=== PATIENT | female | born 1950 | race Caucasian/White ===

== ENCOUNTER 2019-04-09 15:09 | Inpatient (IN) | payer MEDICARE ==
[2019-04-09] MEDS ORDERED: ACETAMINOPHEN TAB 325 MG TAB PO PRN (18:21)
[2019-04-09] MEDS: SODIUM CHLORIDE 0.9% 1,000 ML IV SCH (18:46)
[2019-04-09] MEDS: METOPROLOL TARTRATE 25 MG TAB PO SCH (20:28)
[2019-04-09] MEDS: APIXABAN 5 MG TAB PO SCH (20:28)
[2019-04-10] MEDS ORDERED: LEVOTHYROXINE 75 MCG TAB PO SCH (06:30)
[2019-04-10 06:38] VITALS: RESP 16
[2019-04-10 06:55] LABS: HCT 38.8 % (34.0-46.0); MCHC 33.6 g/dL (31.0-37.0); MCV 89.2 fL (80.0-100.0); Mean Platelet Volume 9.5; Platelet Count 144 k/uL (150-450); RBC 4.35 m/uL (3.80-5.40); RDW 12.6 % (11.5-15.5); WBC 5.5 k/uL (3.8-10.6)
[2019-04-10 07:02] LABS: ALT 17 U/L (4-34); AST 26 U/L (14-36); African American GFR (CKD) >90 (>60 ml/min/1.73 sqM); Albumin 3.9 g/dL (3.5-5.0); Alkaline Phosphatase 40 U/L (38-126); Anion Gap 4 mmol/L; Blood Urea Nitrogen 12 mg/dL (7-17); Carbon Dioxide 30 mmol/L (22-30); Chloride 103 mmol/L (98-107); Glucose 86 mg/dL (74-99); Non-African American GFR(CKD) >90 (>60 ml/min/1.73 sqM); Potassium 4.1 mmol/L (3.5-5.1); Sodium 137 mmol/L (137-145); Total Bilirubin 0.8 mg/dL (0.2-1.3); Total Protein 6.5 g/dL (6.3-8.2)
[2019-04-10] MEDS: METOPROLOL TARTRATE 25 MG TAB PO SCH (07:59)
[2019-04-10] MEDS: APIXABAN 5 MG TAB PO SCH (07:59)
[2019-04-10] MEDS: SODIUM CHLORIDE 0.9% 1,000 ML IV SCH (08:15)
[2019-04-10] MEDS ORDERED: CALCIUM CARBONATE 500 MG CHEWABLE PO SCH (09:00)
--- NOTE | 2019-04-10 10:30 | P.HPIM ---
History of Present Illness patient is a pleasant 70-year-old female came in with compensative palpitations denied any shortness of breath denied any fever chills nausea vomiting abdominal burning dysuria diarrhea patient doesn't have any significant alert light abnormalities patient heart rate is controlled patient converted to sinus rhythm with the fevers of Cardizem. Patient was started on metoprolol which which patient is becoming sinus bradycardic will cut down the metoprolol to 12.5 twice a day and patient will be discharged today after evaluated by cardiology. Patient had a TSH within which is within normal limits patient does take levothyroxine at home. Patient was diagnosed with atrial fibrillation in 2012 at that time patient was dehydrated and did have some and provided abnormalities at this time I don't see any precipitating factor for today. Review of Systems REVIEW OF SYSTEMS: CONSTITUTIONAL: No fever, no malaise, no fatigue. HEENT: No recent visual problems or hearing problems. Denied any sore throat. CARDIOVASCULAR: No chest pain, orthopnea, PND, no syncope. PULMONARY: No shortness of breath, no cough, no hemoptysis. GASTROINTESTINAL: No diarrhea, no nausea, no vomiting, no abdominal pain. NEUROLOGICAL: No headaches, no weakness, no numbness. HEMATOLOGICAL: Denies any bleeding or petechiae. GENITOURINARY: Denies any burning micturition, frequency, or urgency. MUSCULOSKELETAL/RHEUMATOLOGICAL: Denies any joint pain, swelling, or any muscle pain. ENDOCRINE: Denies any polyuria or polydipsia. The rest of the 14-point review of systems is negative. Past Medical History Past Medical History: Atrial Fibrillation, GERD/Reflux, Hyperlipidemia, Osteoarthritis (OA), Thyroid Disorder Additional Past Medical History / Comment(s): hypothyroid History of Any Multi-Drug Resistant Organisms: None Reported Past Surgical History: Breast Surgery, Section, Tonsillectomy Additional Past Surgical History / Comment(s): left breast biopsy. radiation treatment to throat post tonsillectomy at age 5. c sectionx 2 Past Anesthesia/Blood Transfusion Reactions: No Reported Reaction Smoking Status: Never smoker - Past Family History Father Family Medical History: Cancer, Coronary Artery Disease (CAD), Myocardial Infarction ([place]) Additional Family Medical History / Comment(s): lymphoma Mother Family Medical History: Cancer, Coronary Artery Disease (CAD), Diabetes Mellitus, Myocardial Infarction ([place]) Additional Family Medical History / Comment(s): lymphoma Sister(s) Family Medical History: AFIB, Thyroid Disorder Medications and Allergies Home Medications Medication Instructions Recorded Confirmed Type Acetaminophen [Tylenol] 325 - 650 mg PO Q4H PRN 04/09/19 04/09/19 History Alendronate Sodium [Fosamax] 70 mg PO TU 04/09/19 04/09/19 History Apixaban [Eliquis] 5 mg PO BID@0900,2100 04/09/19 04/09/19 History Calcium Carbonate [Calcium] 600 mg PO DAILY 04/09/19 04/09/19 History Cetirizine HCl 10 mg PO DAILY PRN 04/09/19 04/09/19 History Fluticasone Nasal [place] [Flonase 1 spray EA NOSTRIL DAILY PRN 04/09/19 04/09/19 History Nasal [place]] Levothyroxine Sodium [Synthroid] 75 mcg PO DAILY 04/09/19 04/09/19 History Multivitamins, Thera [Multivitamin 1 tab PO DAILY 04/09/19 04/09/19 History (formulary)] Metoprolol Tartrate 12.5 mg PO BID #60 tab 04/10/19 Rx Allergies Allergy/AdvReac Type Severity Reaction Status Date / Time Penicillins Allergy Rash/Hives Verified 04/09/19 17:27 Sulfa (Sulfonamide Allergy Rash/Hives Verified 04/09/19 17:27 Antibiotics) Physical Exam Vitals: Vital Signs Temp Pulse Resp BP Pulse Ox 04/10/19 08:00 98.6 F 72 16 105/56 97 04/10/19 04:00 60 16 98/56 98 04/10/19 00:00 98.7 F 59 L 17 99/56 98 04/09/19 20:00 97.3 F L 75 16 115/62 98 04/09/19 17:38 70 18 99/68 99 Intake and Output 04/09/19 04/10/19 04/10/19 22:59 06:59 14:59 Intake Total 120 Balance 120 Intake: Oral 120 Other: Voiding Method Toilet Toilet # Voids 1 1 Weight 63.3 kg 64 kg PHYSICAL EXAMINATION: GENERAL: The patient is alert and oriented x3, not in any acute distress. Well developed, well nourished. HEENT: Pupils are round and equally reacting to light. EOMI. No scleral icterus. No conjunctival pallor. Normocephalic, atraumatic. No pharyngeal erythema. No thyromegaly. CARDIOVASCULAR: S1 and S2 present. No murmurs, rubs, or gallops. PULMONARY: Chest is clear to auscultation, no wheezing or crackles. ABDOMEN: Soft, nontender, nondistended, normoactive bowel sounds. No palpable organomegaly. MUSCULOSKELETAL: No joint swelling or deformity. EXTREMITIES: No cyanosis, clubbing, or pedal edema. NEUROLOGICAL: Gross neurological examination did not reveal any focal deficits. SKIN: No rashes. Results CBC & Chem 7: 04/10/19 06:04 04/10/19 06:04 Labs: Abnormal Lab Results - Last 24 Hours (Table) 04/10/19 Range/Units 06:04 Plt Count 144 L (150-450) k/uL Thrombosis Risk Factor Assmnt - Choose All That Apply Any of the Below Risk Factors Present?: Yes Each Factor Represents 1 point: Obesity (BMI >25) Other Risk Factors: Yes Each Risk Factor Represents 2 Points: Age 61-74 years Thrombosis Risk Factor Assessment Total Risk Factor Score: 3 Thrombosis Risk Factor Assessment Level: Moderate Risk Assessment and Plan Plan: -atrial fibrillation with rapid ventricular rate: Patient is currently sinus rhythm rate controlled patient has proximal A. fib patient is highly sensitive to rate control medications we will lower discharged on a very low-dose of metoprolol -Hypotelorism TSH is within normal limits will continue have elevated thyroxine -hyperlipidemia -osteo- arthritis -gastro-esophageal reflux disease
--- NOTE | 2019-04-10 10:31 | P.DS ---
Providers Date of admission: 04/09/19 16:45 Attending physician: Nadeen Adorno MD Consults: 04/09/19 18:22 Consult Physician Routine Consulting Provider: Nghia Woo Consult Reason/Comments: afib rvr Do you want consulting provider notified?: Yes Primary care physician: Bessie L [facility] Course: as mentioned in HPI Plan - Discharge Summary Discharge Rx Participant: No New Discharge Prescriptions: New Metoprolol Tartrate 12.5 mg PO BID #60 tab No Action Fluticasone Nasal [place] [Flonase Nasal [place]] 1 spray EA NOSTRIL DAILY PRN PRN Reason: Allergy Symptoms Cetirizine HCl 10 mg PO DAILY PRN PRN Reason: Allergy Symptoms Acetaminophen [Tylenol] 325 - 650 mg PO Q4H PRN PRN Reason: Pain Multivitamins, Thera [Multivitamin (formulary)] 1 tab PO DAILY Calcium Carbonate [Calcium] 600 mg PO DAILY Alendronate Sodium [Fosamax] 70 mg PO TU Apixaban [Eliquis] 5 mg PO BID@0900,2099 Levothyroxine Sodium [Synthroid] 75 mcg PO DAILY Discharge Medication List Acetaminophen [Tylenol] 325 - 650 mg PO Q4H PRN 04/09/19 [History] Alendronate Sodium [Fosamax] 70 mg PO TU 04/09/19 [History] Apixaban [Eliquis] 5 mg PO BID@0900,2100 04/09/19 [History] Calcium Carbonate [Calcium] 600 mg PO DAILY 04/09/19 [History] Cetirizine HCl 10 mg PO DAILY PRN 04/09/19 [History] Fluticasone Nasal [place] [Flonase Nasal [place]] 1 spray EA NOSTRIL DAILY PRN 04/09/19 [History] Levothyroxine Sodium [Synthroid] 75 mcg PO DAILY 04/09/19 [History] Multivitamins, Thera [Multivitamin (formulary)] 1 tab PO DAILY 04/09/19 [History] Metoprolol Tartrate 12.5 mg PO BID #60 tab 04/10/19 [Rx] Discharge Disposition: HOME SELF-CARE
[2019-04-10] MEDS ORDERED: MULTIVITAMINS, THERA 1 EACH TAB PO SCH (12:00)
--- NOTE | 2019-04-10 12:04 | P.CRDCN ---
History of Present Illness Consult date: 04/10/19 Chief complaint: Palpitation History of present illness: This is a very pleasant 68-year-old female patient with thyroid disorder as well as paroxysmal atrial fibrillation maintaining on oral anticoagulation was transferred from the [facility] for further cardiac evaluation. The patient was in her usual state of health until yesterday when she was at home when suddenly she started experiencing irregular heartbeat associated with p alpitation but no dizziness, or syncope. No chest pain or chest discomfort. She knew that was in atrial fibrillation when she checked her pulse and that was irregular. She presented initially to the emergency room with [facility] where she was found to be in atrial fibrillation and subsequently she was started on Cardizem drip and transferred here. She is converted to normal sinus mechanism has been maintaining normal sinus mechanism. She is asymptomatic at this point and denies any chest pain, shortness of breath, dizziness, heart racing, or syncope. She was at home receiving 12.5 mg by mouth twice a day of metoprolol and the dose was increased to 25 mg by mouth twice a day. Her blood work otherwise is unremarkable. The patient would like to go home. She is on oral anticoagulation. Past Medical History Past Medical History: Atrial Fibrillation, GERD/Reflux, Hyperlipidemia, Osteoarthritis (OA), Thyroid Disorder Additional Past Medical History / Comment(s): hypothyroid History of Any Multi-Drug Resistant Organisms: None Reported Past Surgical History: Breast Surgery, Section, Tonsillectomy Additional Past Surgical History / Comment(s): left breast biopsy. radiation treatment to throat post tonsillectomy at age 5. c sectionx 2 Past Anesthesia/Blood Transfusion Reactions: No Reported Reaction Smoking Status: Never smoker - Past Family History Father Family Medical History: Cancer, Coronary Artery Disease (CAD), Myocardial Infarction ([place]) Additional Family Medical History / Comment(s): lymphoma Mother Family Medical History: Cancer, Coronary Artery Disease (CAD), Diabetes Mellitus, Myocardial Infarction ([place]) Additional Family Medical History / Comment(s): lymphoma Sister(s) Family Medical History: AFIB, Thyroid Disorder Medications and Allergies Home Medications Medication Instructions Recorded Confirmed Type Acetaminophen [Tylenol] 325 - 650 mg PO Q4H PRN 04/09/19 04/09/19 History Alendronate Sodium [Fosamax] 70 mg PO TU 04/09/19 04/09/19 History Apixaban [Eliquis] 5 mg PO BID@0900,2100 04/09/19 04/09/19 History Calcium Carbonate [Calcium] 600 mg PO DAILY 04/09/19 04/09/19 History Cetirizine HCl 10 mg PO DAILY PRN 04/09/19 04/09/19 History Fluticasone Nasal [place] [Flonase 1 spray EA NOSTRIL DAILY PRN 04/09/19 04/09/19 History Nasal [place]] Levothyroxine Sodium [Synthroid] 75 mcg PO DAILY 04/09/19 04/09/19 History Multivitamins, Thera [Multivitamin 1 tab PO DAILY 04/09/19 04/09/19 History (formulary)] Metoprolol Tartrate 12.5 mg PO BID #60 tab 04/10/19 Rx Allergies Allergy/AdvReac Type Severity Reaction Status Date / Time Penicillins Allergy Rash/Hives Verified 04/09/19 17:27 Sulfa (Sulfonamide Allergy Rash/Hives Verified 04/09/19 17:27 Antibiotics) Physical Exam Vitals: Vital Signs Temp Pulse Resp BP Pulse Ox 04/10/19 08:00 98.6 F 72 16 105/56 97 04/10/19 04:00 60 16 98/56 98 04/10/19 00:00 98.7 F 59 L 17 99/56 98 04/09/19 20:00 97.3 F L 75 16 115/62 98 04/09/19 17:38 70 18 99/68 99 Intake and Output 04/09/19 04/10/19 04/10/19 22:59 06:59 14:59 Intake Total 120 Balance 120 Intake: Oral 120 Other: Voiding Method Toilet Toilet # Voids 1 1 Weight 63.3 kg 64 kg - Constitutional General appearance: no acute distress - Respiratory Respiratory: bilateral: CTA - Cardiovascular Rhythm: regular Heart sounds: normal: S1, S2 Results 04/10/19 06:04 04/10/19 06:04 Cardiac Enzymes 04/09/19 04/10/19 04/10/19 Range/Units 18:54 01:09 06:04 AST 26 (14-36) U/L Troponin I 0.012 <0.012 (0.000-0.034) ng/mL 04/10/19 Range/Units 06:04 AST (14-36) U/L Troponin I <0.012 (0.000-0.034) ng/mL CBC 04/10/19 Range/Units 06:04 WBC 5.5 (3.8-10.6) k/uL RBC 4.35 (3.80-5.40) m/uL Hgb 13.0 (11.4-16.0) gm/dL Hct 38.8 (34.0-46.0) % Plt Count 144 L (150-450) k/uL Comprehensive Metabolic Panel 04/10/19 Range/Units 06:04 Sodium 137 (137-145) mmol/L Potassium 4.1 (3.5-5.1) mmol/L Chloride 103 (98-107) mmol/L Carbon Dioxide 30 (22-30) mmol/L BUN 12 (7-17) mg/dL Creatinine 0.67 (0.52-1.04) mg/dL Glucose 86 (74-99) mg/dL Calcium 9.0 (8.4-10.2) mg/dL AST 26 (14-36) U/L ALT 17 (4-34) U/L Alkaline Phosphatase 40 (38-126) U/L Total Protein 6.5 (6.3-8.2) g/dL Albumin 3.9 (3.5-5.0) g/dL Current Medications Generic Name Dose Route Start Last Admin Trade Name Freq PRN Reason Stop Dose Admin Acetaminophen 650 mg 04/09/19 18:21 Tylenol Tab PO Q6HR PRN Pain Apixaban 5 mg 04/09/19 21:00 04/10/19 07:59 Eliquis PO 5 mg BID@0900,2100 [facility] Administration Calcium Carbonate/Glycine 500 mg 04/10/19 09:00 04/10/19 07:58 Tums PO Not Given DAILY [facility] Sodium Chloride 1,000 mls @ 75 mls/hr 04/09/19 18:30 04/10/19 08:15 Saline 0.9% IV Not Given .[id number] [facility] Levothyroxine Sodium 75 mcg 04/10/19 06:30 04/10/19 06:37 Synthroid PO 75 mcg DAILY@0630 [facility] Administration Metoprolol Tartrate 25 mg 04/09/19 21:00 04/10/19 07:59 Lopressor PO 12.5 mg BID [facility] Administration Multivitamins 1 each 04/10/19 12:00 Theragran PO DAILY@1200 [facility] Intake and Output 04/09/19 04/10/19 04/10/19 22:59 06:59 14:59 Intake Total 120 Balance 120 Intake: Oral 120 Other: Voiding Method Toilet Toilet # Voids 1 1 Weight 63.3 kg 64 kg 04/10/19 06:04 04/10/19 06:04 Assessment and Plan Assessment: Assessment #1 atrial fibrillation with RVR. The patient converted to normal sinus mechanism #2 known paroxysmal atrial fibrillation #3 thyroid disorder Plan #1 agree about increasing the dose of metoprolol to 25 mg by mouth twice a day #2 the patient can be discharged home Thank you for allowing us participate in her care
[2019-04-10 12:49] VITALS: BP 98/59; PULSE 60; TEMP 98.2
== END 2019-04-10 13:39 | disposition home or self-care (01) | DRG 310 ==
LOC: 3SCARD 16:45
PROVIDERS: ADMIT Internal Medicine; ATTEND Internal Medicine
DX: I48.0 Paroxysmal atrial fibrillation (principal); E03.9 Hypothyroidism, unspecified; E78.5 Hyperlipidemia, unspecified; K21.9 Gastro-esophageal reflux disease without esophagitis; M19.90 Unspecified osteoarthritis, unspecified site; Z79.01 Long term (current) use of anticoagulants; Z92.3 Personal history of irradiation; Z79.83 Long term (current) use of bisphosphonates; Z79.890 Hormone replacement therapy; Z80.7 Family history of other malignant neoplasms of lymphoid, hematopoietic and related tissues; Z82.49 Family history of ischemic heart disease and other diseases of the circulatory system; Z83.3 Family history of diabetes mellitus; Z79.899 Other long term (current) drug therapy; Z88.0 Allergy status to penicillin; Z88.2 Allergy status to sulfonamides
CPT/HCPCS: 80053; 84443; 84484; 85027

== ENCOUNTER → 2019-07-22 | Outpatient (CLI) | payer MEDICARE ==
[2019-07-22 14:58] VITALS: BP 117/68; PULSE 73; RESP 18; TEMP 98.3
--- NOTE | 2019-07-22 15:30 | P.GSHP ---
History of Present Illness H&P Date: 07/22/19 Chief Complaint: Abnormal mammogram Cata is a 61-year-old white female seen in consultation for Bessie Mckenzie who underwent a bilateral mammogram on . This was in follow- up for a bi-lateral mammogram approximately 6 months prior with some calcifications noted. On the most recent mammogram she was noted to have some coarse single Microcalcification central upper breast bilaterally. There was chronic nodularity in the left axilla. The area in the right breast was felt to be suspicious enough to warrant intervention of stereotactic core biopsy. She does not feel any masses or lumps in her breast. No complaints of nipple discharge. No complaints of breast pain. No trauma or infection in her breast. The left breast biopsy at 36 which was not cancer. Caffeine: 4 cups/day smoking: none, daughter lives with her an smokes outside chocolate: occasional Family History: mother: lung cancer, lymphoma father: lymphoma Hormonal History: menarche: 13 , breast fed: yes, age at first : 27 menopause: 50 BCP: 6 years hormones: none Surgical History: 1. left breast biopsy 2. 2 C-sections 3. D&C 4. dental surgery Medical History: 1. atrial fibrillation 2. hypothyroid Social History: smoke: 2nd hand smoke alcohol: none drugs: none - Constitutional Comment: hot flashes Constitutional: Denies chills, Denies fever - EENT Eyes: denies blurred vision, denies pain Ears: deny: decreased hearing, tinnitus Ears, nose, mouth and throat: Denies headache, Denies sore throat - Breasts Breasts: bilateral: as per HPI - Cardiovascular Comment: atrial fibrillation - Respiratory Respiratory: Denies cough, Denies 7 - Gastrointestinal Gastrointestinal: Denies abdominal pain, Denies diarrhea, Denies nausea, Denies vomiting - Genitourinary (Female) Genitourinary: Denies dysuria, Denies hematuria - Menstruation Menstruation: Reports postmenopausal - Musculoskeletal Comment: arthritis - Integumentary Integumentary: Denies pruritus, Denies rash - Neurological Neurological: Denies numbness, Denies weakness - Psychiatric Psychiatric: Denies anxiety, Denies depression - Endocrine Endocrine: Denies fatigue, Denies weight change - Hematologic/Lymphatic Comment: eloquis - Allergic/Immunologic Allergic/Immunologic: Reports as per HPI Past Medical History Past Medical History: Atrial Fibrillation, GERD/Reflux, Hyperlipidemia, Osteoarthritis (OA), Thyroid Disorder Additional Past Medical History / Comment(s): hypothyroid History of Any Multi-Drug Resistant Organisms: None Reported Past Surgical History: Breast Surgery, Section, Tonsillectomy Additional Past Surgical History / Comment(s): left breast biopsy. radiation treatment to throat post tonsillectomy at age 5. c sectionx 2 Past Anesthesia/Blood Transfusion Reactions: No Reported Reaction Past Psychological History: No Psychological Hx Reported Smoking Status: Never smoker Past Alcohol Use History: None Reported Past Drug Use History: None Reported - Past Family History Father Family Medical History: Cancer, Coronary Artery Disease (CAD), Myocardial Infarction ([place]) Additional Family Medical History / Comment(s): lymphoma Mother Family Medical History: Cancer, Coronary Artery Disease (CAD), Diabetes Mellit us, Myocardial Infarction ([place]) Additional Family Medical History / Comment(s): lymphoma Sister(s) Family Medical History: AFIB, Thyroid Disorder Medications and Allergies Home Medications Medication Instructions Recorded Confirmed Type Acetaminophen [Tylenol] 325 - 650 mg PO Q4H PRN 04/09/19 07/22/19 History Alendronate Sodium [Fosamax] 70 mg PO TU 04/09/19 07/22/19 History Apixaban [Eliquis] 5 mg PO BID@0900,2100 04/09/19 07/22/19 History Calcium Carbonate [Calcium] 600 mg PO DAILY 04/09/19 07/22/19 History Cetirizine HCl 10 mg PO DAILY PRN 04/09/19 07/22/19 History Fluticasone Nasal [place] [Flonase 1 spray EA NOSTRIL DAILY PRN 04/09/19 07/22/19 History Nasal [place]] Levothyroxine Sodium [Synthroid] 75 mcg PO DAILY 04/09/19 07/22/19 History Multivitamins, Thera [Multivitamin 1 tab PO DAILY 04/09/19 07/22/19 History (formulary)] Metoprolol Tartrate [Lopressor] 12.5 mg PO BID 07/22/19 07/22/19 History Allergies Allergy/AdvReac Type Severity Reaction Status Date / Time Penicillins Allergy Rash/Hives Verified 07/22/19 14:58 Sulfa (Sulfonamide Allergy Rash/Hives Verified 07/22/19 14:58 Antibiotics) Surgical - Exam Vital Signs Temp Pulse Resp BP Pulse Ox 98.3 F 73 18 117/68 98 07/22/19 14:55 07/22/19 14:55 07/22/19 14:55 07/22/19 14:55 07/22/19 14:55 BMI 26.6 - General well developed, well nourished, no distress - Eyes normal ocular movement, no icteric - ENT no hearing loss, no congestion - Neck no masses, trachea midline - Respiratory normal expansion, normal respiratory effort, clear to auscultation - Cardiovascular Heart Sounds: normal: S1, S2 - Abdomen Abdomen: soft, non tender, no guarding, no rigid, no rebound - Integumentary normal turgor - Neurologic no disoriented, no combative - Musculoskeletal normal gait, normal posture - Psychiatric oriented to time, oriented to person, oriented to place, speech is normal, memory intact breast exam: BRA 38C inspection: well healed scar left areolar area, ptosis grade 2 Palpation: Bypass: Multiple positional exam no dominant masses or nodules of concern, fibrocystic changes Right axilla: No adenopathy of concern Left breast: Multiple positional exam fibrocystic changes no dominant masses or nodules of concern Left axilla: No adenopathy of concern Results Mammogram results reviewed Assessment and Plan Assessment: Impression: 1. Mammographic abnormality right breast 2. Fibrocystic breast changes 3. Atrial fibrillation on all across Plan: 1. Stereotactic core biopsy right breast lesion 2. Stop anticoagulation as per medical doctor Alternatives including watchful waiting and open biopsy in the operating room discussed but not recommended. Risks and benefits including bleeding and infection reaction to the anesthetic discussed. The possibility that the area will not be adequately sampled was also discussed if this were discordant it could result in an open biopsy be necessary. Patient understands risks and benefits and wishes to proceed. CC: Bessie Penn encounter 45 minutes, > 50% of time in planning and counselling
== END | disposition home or self-care (01) ==
LOC: WWCWWP 14:43
PROVIDERS: ATTEND Surgery
DX: Z53.9 Procedure and treatment not carried out, unspecified reason (principal)

== ENCOUNTER → 2019-08-11 | Day surgery (SDC) | payer MEDICARE ==
[2019-08-11 07:29] VITALS: RESP 16
--- NOTE | 2019-08-11 08:28 | P.PCN ---
Date of Procedure: 08/11/19 Preoperative Diagnosis: Abnormal right breast mammogram Postoperative Diagnosis: Same Procedure(s) Performed: Stereotactic core biopsy right breast Anesthesia: local Surgeon: Fay Spaulding Pathology: other (Breast tissue) Condition: stable Disposition: same day Indications for Procedure: Suspicious calcifications central upper breast right Operative Findings: Microcalcifications noted in biopsy specimen Description of Procedure: The patient is a 69-year-old white female who underwent a mammogram which revealed calcifications of concern in the upper central portion of the right breast. She was recommended to undergo stereotactic core biopsy. Risk and benefits of the procedure were discussed with the patient and she agreed to proceed. Alternatives such as watchful waiting or open biopsy were not recommended. The patient was taken to the stereotactic core biopsy room. The patient was positioned prone on the low rad table. A lateral to medial approach was utilized. A bonded structures repairer film was obtained which revealed the microcalcifications of concern. Stereo pair was obtained. The lesion was targeted. The breast was prepped using Betadine. 20 mL of 1% lidocaine was used to anesthetize the area of concern. A 19-gauge vacuum-assisted core rotating biopsy needle was driven to the correct coordinates. The needle was fired. Post fire films revealed the needle to be in the correct location. 12 core biopsy specimens were obtained. Radiograph of the specimens revealed the microcalcifications of concern had been sampled. A secure aston Top-pocket marker was placed. The patient tolerated the procedure in stable condition. The specimen was sent to pathology. The patient will follow- up with Dr. Perdomo next week.
[2019-08-11 08:38] VITALS: BP 123/64; PULSE 68; TEMP 98.6
--- NOTE | 2019-08-11 13:44 | MM ---
EXAMINATION TYPE: MG stereo VAD BX RT DATE OF EXAM: 08/11/2019 COMPARISON: NONE CLINICAL HISTORY: Abnormal mammogram TECHNIQUE: Stereotactic guided core biopsy of right breast. FINDINGS: Targeting was provided by radiology. The procedure was performed by surgery. Postprocedure mammogram: Surgical core marker is in the expected region of the calcifications. The calcifications appear resected. Specimen: Mammographic specimen demonstrates multiple calcifications. IMPRESSION: 1. Successful stereotactic core biopsy right breast calcifications. Recommendations: 1. Recommendations are pending pathology results. Pathology Results: Benign RIGHT BREAST, SITE NOT OTHERWISE SPECIFIED (CORE BIOPSY): Non-proliferative fibrocystic changes with ductal microcalcifications. Recommendation Follow up mammogram of the right breast in 6 months. NURY
== END ==
LOC: RADMAMWWP 07:08
PROVIDERS: ATTEND Surgery
DX: N60.11 Diffuse cystic mastopathy of right breast (principal)
CPT/HCPCS: 88305; 19081; A4648; J2001

== ENCOUNTER → 2019-08-18 | Outpatient (CLI) | payer MEDICARE ==
[2019-08-18 10:45] VITALS: BP 109/68; PULSE 61; RESP 16; TEMP 98.9
--- NOTE | 2019-08-18 11:16 | P.PN ---
Subjective Progress Note Date: 08/18/19 Principal diagnosis: fibrocystic changes Patient is a 69-year-old white female status post a tactic core biopsy of the right breast and [id number]. Pathology revealed nonproliferative fibrocystic changes with ductal microcalcifications. In the immediate post-procedure. She developed some erythema of the breast however this is resolved. Maybe related to the location of some tape. She has some mild ecchymosis but otherwise is doing well without any complaints. Her last bilateral mammogram was 07-14-2019 and this led to right breast stereotactic core biopsy. No lesions to were biopsy were identified in the left breast. Objective - Vital Signs Vital signs: Vital Signs Temp 98.9 F 08/18/19 10:40 Pulse 61 08/18/19 10:40 Resp 16 08/18/19 10:40 BP 109/68 08/18/19 10:40 Pulse Ox 99 08/18/19 10:40 Intake & Output 08/17/19 08/18/19 08/18/19 18:59 06:59 18:59 Weight 64.864 kg - Exam BMI 25.7 - Constitutional General appearance: Present: average body habitus - EENT Eyes: Present: EOMI ENT: Present: hearing grossly normal - Neck Neck: Present: normal ROM - Respiratory Respiratory: bilateral: CTA - Cardiovascular Rhythm: regular Heart sounds: normal: S1, S2 - Integumentary Integumentary Comment(s): Mild ecchymosis right breast at biopsy site no evidence of infection Integumentary: Present: normal turgor Assessment and Plan Assessment: Impression/Plan: 1. Status post right breast stereotactic core biopsy on 08-11-19; pathology benign repeat right breast mammogram in 6 months 2. Bilateral mammogram June 2020 3. Follow-up here after right breast mammogram in 6 months 4. Call if she has any questions or concerns CC: Bessie Alonso encounter: 15 minutes, > 50% of time in planning and counsellin Time with Patient: Less than 30
== END | disposition home or self-care (01) ==
LOC: WWCWWP 10:32
PROVIDERS: ATTEND Surgery
DX: Z53.9 Procedure and treatment not carried out, unspecified reason (principal)

== ENCOUNTER 2020-01-26 01:46 | Observation (INO) | payer MEDICARE ==
[2020-01-26] MEDS ORDERED: SODIUM CHLORIDE 0.9% 1,000 ML IV STA (02:03)
[2020-01-26] MEDS ORDERED: DILTIAZEM 5 MG/ML 5 ML VIAL IVP STA ×2 (02:03→02:49)
--- NOTE | 2020-01-26 02:10 | ED ---
Arrhythmia/Palpitations HPI - General Chief Complaint: Arrhythmia/Palpitations Stated Complaint: A-Fib Time Seen by Provider: 01/26/20 01:52 Source: patient, family, RN notes reviewed, old records reviewed Mode of arrival: ambulatory Limitations: no limitations - History of Present Illness Initial Comments: This is a 61-year-old female DF for evaluation patient Dese for evaluation of abnormal heart rate. History of atrial fibrillation states her heart was elevated today. She did take an extra dose or medication but does not seem to help. Otherwise no complaints no chest pain. No recent change in medications has been taking medications as prescribed. No recent nausea vomiting or diarrhea. No fevers no recent significant white female weight loss MD Complaint: rapid heart beat, "heart racing", palpitations, atrial f ibrillation -: hour(s) Context: occurred during rest Arrhythmia History: atrial fibrillation, SVT Associated Symptoms: denies other symptoms Treatments Prior to Arrival: beta-yulisa - Related Data Home Medications Medication Instructions Recorded Confirmed Acetaminophen [Tylenol] 325 - 650 mg PO Q4H PRN 04/09/19 01/26/20 Alendronate Sodium [Fosamax] 70 mg PO TU 04/09/19 01/26/20 Apixaban [Eliquis] 5 mg PO BID@0900,2100 04/09/19 01/26/20 Calcium Carbonate [Calcium] 600 mg PO DAILY 04/09/19 01/26/20 Fluticasone Nasal [place] [Flonase 1 spray EA NOSTRIL DAILY PRN 04/09/19 01/26/20 Nasal [place]] Levothyroxine Sodium [Synthroid] 75 mcg PO DAILY 04/09/19 01/26/20 Multivitamins, Thera [Multivitamin 1 tab PO AC-LUNCH 04/09/19 01/26/20 (formulary)] L.acidoph,Paracasei, B.lactis 1 cap PO DAILY 01/26/20 01/26/20 [Probiotic] Previous Rx's Medication Instructions Recorded Metoprolol Tartrate [Lopressor] 25 mg PO BID #0 01/26/20 Allergies Allergy/AdvReac Type Severity Reaction Status Date / Time diphtheria, pertussis, Allergy Swelling Verified 01/26/20 06:43 tetanus vacc Penicillins Allergy Rash/Hives Verified 01/26/20 06:43 Sulfa (Sulfonamide Allergy Rash/Hives Verified 01/26/20 06:43 Antibiotics) Review of Systems ROS Statement: Those systems with pertinent positive or pertinent negative responses have been documented in the HPI. ROS Other: All systems not noted in ROS Statement are negative. Past Medical History Past Medical History: Atrial Fibrillation, GERD/Reflux, Hyperlipidemia, Osteoarthritis (OA), Thyroid Disorder Additional Past Medical History / Comment(s): hypothyroid History of Any Multi-Drug Resistant Organisms: None Reported Past Surgical History: Breast Surgery, Section, Tonsillectomy Additional Past Surgical History / Comment(s): left breast biopsy; radiation treatment to throat post tonsillectomy at age 5; c sectionx 2 Past Anesthesia/Blood Transfusion Reactions: No Reported Reaction Past Psychological History: No Psychological Hx Reported Smoking Status: Never smoker Past Alcohol Use History: None Reported Past Drug Use History: None Reported - Past Family History Father Family Medical History: Cancer, Coronary Artery Disease (CAD), Myocardial Infarction ([place]) Additional Family Medical History / Comment(s): lymphoma Mother Family Medical History: Cancer, Coronary Artery Disease (CAD), Diabetes Mellitus, Myocardial Infarction ([place]) Additional Family Medical History / Comment(s): lymphoma Sister(s) Family Medical History: AFIB, Thyroid Disorder General Exam Limitations: no limitations General appearance: alert, in no apparent distress, anxious Head exam: Present: atraumatic, normocephalic, normal inspection Eye exam: Present: normal appearance, PERRL, EOMI. Absent: scleral icterus, conjunctival injection, periorbital swelling ENT exam: Present: normal exam, mucous membranes moist Neck exam: Present: normal inspection. Absent: tenderness, meningismus, lymphadenopathy Respiratory exam: Present: normal lung sounds bilaterally. Absent: respiratory distress, wheezes, rales, rhonchi, stridor Cardiovascular Exam: Present: tachycardia, irregular rhythm, normal heart sounds. Absent: systolic murmur, diastolic murmur, rubs, gallop, clicks GI/Abdominal exam: Present: soft, normal bowel sounds. Absent: distended, tenderness, guarding, rebound, rigid Extremities exam: Present: normal inspection, full ROM, normal capillary refill. Absent: tenderness, pedal edema, joint swelling, calf tenderness Back exam: Present: normal inspection Neurological exam: Present: alert, oriented X3, CN II-XII intact Psychiatric exam: Present: normal affect, normal mood Skin exam: Present: warm, dry, intact, normal color. Absent: rash Course Vital Signs 01/26/20 01/26/20 01/26/20 01:49 01:59 02:04 Temperature 98.8 F Pulse Rate 86 147 H Pulse Rate [ 148 H [employer] ] Respiratory 18 16 Rate Blood Pressure 144/91 100/86 O2 Sat by Pulse 98 99 Oximetry 01/26/20 01/26/20 01/26/20 02:15 02:25 02:30 Temperature Pulse Rate 151 H 93 105 H Pulse Rate [ [employer] ] Respiratory 16 16 16 Rate Blood Pressure 120/81 100/64 105/77 O2 Sat by Pulse 98 100 99 Oximetry 01/26/20 01/26/20 01/26/20 02:40 02:55 03:15 Temperature Pulse Rate 103 H 122 H 98 Pulse Rate [ [employer] ] Respiratory 16 16 16 Rate Blood Pressure 122/69 96/82 97/75 O2 Sat by Pulse 97 100 98 Oximetry 01/26/20 01/26/20 01/26/20 03:45 04:00 04:30 Temperature Pulse Rate 141 H 137 H 106 H Pulse Rate [ [employer] ] Respiratory 16 16 16 Rate Blood Pressure 109/56 99/85 106/74 O2 Sat by Pulse 97 96 97 Oximetry 01/26/20 04:50 Temperature 97.9 F Pulse Rate 116 H Pulse Rate [ [employer] ] Respiratory 16 Rate Blood Pressure 113/69 O2 Sat by Pulse 97 Oximetry - Reevaluation(s) Reevaluation #1: Medical record is reviewed Unable control patient's heart rate here in the emergency department, decision is made to admit for prolonged rate control Patient remains without complaint other than fast heart rate, no chest pain Patient informed of results and questions have been answered EKG Findings - EKG Comments: EKG Findings:: EKG shows A. fib with RVR 148 QRS 76 QTc 464 Medical Decision Making - Medical Decision Making 61 female with uncontrolled atrial fibrillation with RVR. Patient will be admitted for continued rate control - Lab Data Result diagrams: 01/26/20 02:08 01/26/20 02:08 Lab Results 01/26/20 01/26/20 01/26/20 Range/Units 02:08 02:08 02:08 WBC 9.2 (3.8-10.6) k/uL RBC 4.71 (3.80-5.40) m/uL Hgb 13.5 (11.4-16.0) gm/dL Hct 42.6 (34.0-46.0) % MCV 90.6 (80.0-100.0) fL MCH 28.7 (25.0-35.0) pg MCHC 31.7 (31.0-37.0) g/dL RDW 12.6 (11.5-15.5) % Plt Count 155 (150-450) k/uL MPV 9.0 Neutrophils % 69 % Lymphocytes % 21 % Monocytes % 7 % Eosinophils % 1 % Basophils % 1 % Neutrophils # 6.3 (1.3-7.7) k/uL Lymphocytes # 1.9 (1.0-4.8) k/uL Monocytes # 0.6 (0-1.0) k/uL Eosinophils # 0.1 (0-0.7) k/uL Basophils # 0.1 (0-0.2) k/uL PT 10.5 (9.0-12.0) sec INR 1.0 (<1.2) APTT 26.8 (22.0-30.0) sec Sodium 136 L (137-145) mmol/L Potassium 3.9 (3.5-5.1) mmol/L Chloride 101 (98-107) mmol/L Carbon Dioxide 28 (22-30) mmol/L Anion Gap 7 mmol/L BUN 12 (7-17) mg/dL Creatinine 0.67 (0.52-1.04) mg/dL Est GFR (CKD-EPI)AfAm >90 (>60 ml/min/1.73 sqM) Est GFR (CKD-EPI)NonAf >90 (>60 ml/min/1.73 sqM) Glucose 113 H (74-99) mg/dL Calcium 9.2 (8.4-10.2) mg/dL Phosphorus 4.3 (2.5-4.5) mg/dL Magnesium 1.9 (1.6-2.3) mg/dL Total Bilirubin 0.4 (0.2-1.3) mg/dL AST 28 (14-36) U/L ALT 19 (4-34) U/L Alkaline Phosphatase 51 (38-126) U/L Creatine Kinase 100 (30-135) U/L Troponin I (0.000-0.034) ng/mL NT-Pro-B Natriuret Pep pg/mL Total Protein 7.1 (6.3-8.2) g/dL Albumin 4.2 (3.5-5.0) g/dL TSH (0.465-4.680) mIU/L 01/26/20 01/26/20 01/26/20 Range/Units 02:08 02:08 02:08 WBC (3.8-10.6) k/uL RBC (3.80-5.40) m/uL Hgb (11.4-16.0) gm/dL Hct (34.0-46.0) % MCV (80.0-100.0) fL MCH (25.0-35.0) pg MCHC (31.0-37.0) g/dL RDW (11.5-15.5) % Plt Count (150-450) k/uL MPV Neutrophils % % Lymphocytes % % Monocytes % % Eosinophils % % Basophils % % Neutrophils # (1.3-7.7) k/uL Lymphocytes # (1.0-4.8) k/uL Monocytes # (0-1.0) k/uL Eosinophils # (0-0.7) k/uL Basophils # (0-0.2) k/uL PT (9.0-12.0) sec INR (<1.2) APTT (22.0-30.0) sec Sodium (137-145) mmol/L Potassium (3.5-5.1) mmol/L Chloride (98-107) mmol/L Carbon Dioxide (22-30) mmol/L Anion Gap mmol/L BUN (7-17) mg/dL Creatinine (0.52-1.04) mg/dL Est GFR (CKD-EPI)AfAm (>60 ml/min/1.73 sqM) Est GFR (CKD-EPI)NonAf (>60 ml/min/1.73 sqM) Glucose (74-99) mg/dL Calcium (8.4-10.2) mg/dL Phosphorus (2.5-4.5) mg/dL Magnesium (1.6-2.3) mg/dL Total Bilirubin (0.2-1.3) mg/dL AST (14-36) U/L ALT (4-34) U/L Alkaline Phosphatase (38-126) U/L Creatine Kinase (30-135) U/L Troponin I <0.012 (0.000-0.034) ng/mL NT-Pro-B Natriuret Pep 142 pg/mL Total Protein (6.3-8.2) g/dL Albumin (3.5-5.0) g/dL TSH 7.180 H (0.465-4.680) mIU/L Critical Care Time Critical Care Time: Yes Total Critical Care Time: 31 Disposition Clinical Impression: Atrial fibrillation, Tachycardia, Palpitations, Atrial fibrillation with RVR Disposition[facility] Condition: Stable Is patient prescribed a controlled substance at d/c from ED?: No
[2020-01-26 02:27] LABS: Basophils # (A) 0.1 k/uL (0-0.2); Basophils % (A) 1 %; Eosinophils # (A) 0.1 k/uL (0-0.7); Eosinophils % (A) 1 %; HCT 42.6 % (34.0-46.0); HGB 13.5 gm/dL (11.4-16.0); Lymphocytes # (A) 1.9 k/uL (1.0-4.8); Lymphocytes % (A) 21 %; MCH 28.7 pg (25.0-35.0); MCHC 31.7 g/dL (31.0-37.0); MCV 90.6 fL (80.0-100.0); Monocytes # (A) 0.6 k/uL (0-1.0); Monocytes % (A) 7 %; Neutrophils # (A) 6.3 k/uL (1.3-7.7); Neutrophils % (A) 69 %; Platelet Count 155 k/uL (150-450); RBC 4.71 m/uL (3.80-5.40); RDW 12.6 % (11.5-15.5); WBC 9.2 k/uL (3.8-10.6)
[2020-01-26 02:32] LABS: Partial Thromboplastin Time 26.8 sec (22.0-30.0); Prothrombin Time 10.5 sec (9.0-12.0)
[2020-01-26 02:39] LABS: ALT 19 U/L (4-34); AST 28 U/L (14-36); African American GFR (CKD) >90 (>60 ml/min/1.73 sqM); Albumin 4.2 g/dL (3.5-5.0); Alkaline Phosphatase 51 U/L (38-126); Anion Gap 7 mmol/L; Blood Urea Nitrogen 12 mg/dL (7-17); Calcium 9.2 mg/dL (8.4-10.2); Carbon Dioxide 28 mmol/L (22-30); Chloride 101 mmol/L (98-107); Creatine Kinase 100 U/L (30-135); Glucose 113 mg/dL (74-99); Magnesium 1.9 mg/dL (1.6-2.3); Non-African American GFR(CKD) >90 (>60 ml/min/1.73 sqM); Phosphorus 4.3 mg/dL (2.5-4.5); Potassium 3.9 mmol/L (3.5-5.1); Sodium 136 mmol/L (137-145); Total Bilirubin 0.4 mg/dL (0.2-1.3); Total Protein 7.1 g/dL (6.3-8.2)
[2020-01-26] MEDS ORDERED: METOPROLOL TARTRATE 5 MG/5 ML VIAL IVP STA (02:49)
[2020-01-26] MEDS ORDERED: SODIUM CHLORIDE 0.9% 500 ML 500 ML IV ONE (03:00)
[2020-01-26] MEDS ORDERED: DILTIAZEM DRIP BOLUS FROM BAG 1 MG SOLN IV ONE (04:03)
[2020-01-26] MEDS ORDERED: NITROGLYCERIN SL TABS 0.4 MG TAB SUBLINGUAL PRN (04:03)
[2020-01-26] MEDS ORDERED: DILTIAZEM 125 MG in SODIUM CHLORIDE 0.9% 100 ML IV SCH (04:15)
[2020-01-26 08:40] VITALS: PULSE 72; RESP 18; TEMP 98.3
[2020-01-26] MEDS ORDERED: METOPROLOL TARTRATE 50 MG TAB PO SCH (09:00)
[2020-01-26 10:03] VITALS: BP 94/57
--- NOTE | 2020-01-26 10:27 | P.CRDCN ---
History of Present Illness History of present illness: HISTORY OF PRESENTING ILLNESS This is a pleasant 69-year-old female past medical history significant for hypothyroidism, paroxysmal atrial fibrillation who presents secondary to an episode of atrial fibrillation. She follows in the office with Dr. Fontenot. Patient admits she was initially diagnosed with atrial fibrillation in 2012 and has been doing fairly well since that time. She admits to usually only having 1 episode every 1-2 years however has had 2 episodes this year. She had one back in April with spontaneous conversion and was discharged home on her metoprolol. She has been tolerating Eliquis well and denies any hematochezia or melena. She admits she was resting when she started noticing her heart fluttering last night. She denied any chest pain, shortness breath and really only felt the palpitations. Denied any lightheadedness. She tried to wait a few hours howev er this persisted and therefore she came to the emergency department. She had heart rates in the 120s to 130s and was placed on a Cardizem drip at 5. She did spontaneously convert at approximately 8 AM. She feels back to normal. DIAGNOSTICS EKG reveals atrial fibrillation, normal axis, rate 148, mild ST depressions in the lateral leads. Laboratory reviewed, blood cell 9.2, hemoglobin 13.5, platelets 155, creatinine 0.67, troponin negative 3, proBNP 142. Current cardiac medications include aspirin 325 mg daily, metoprolol 50 mg twice a day, she was not restarted on her home Eliquis 5mg bid by admitting doctor. REVIEW OF SYSTEMS At the time of my exam: CONSTITUTIONAL: Denies fever or chills. CARDIOVASCULAR: Denies chest pain, shortness of breath, orthopnea, PND, + palpitations. RESPIRATORY: Denies cough. GASTROINTESTINAL: Denies abdominal pain, diarrhea, constipation, nausea or vom iting. MUSCULOSKELETAL: Denies myalgias. NEUROLOGIC: Denies numbness, tingling or weakness. ENDOCRINE: Denies fatigue, weight change, polydipsia or polyurina. GENITOURINARY: Denies burning, hematuria or urgency with micturation. HEMATOLOGIC: Denies history of anemia or bleeding. PHYSICAL EXAMINATION Blood pressure 94/57 heart rate 72 afebrile and maintaining oxygen saturation on room air. CONSTITUTIONAL: No apparent distress. HEENT: Head is normocephalic. Pupils are equal, round. Sclerae anicteric. Mucous membranes of the mouth are moist. No JVD. No carotid bruit. CHEST EXAMINATION: Lungs are clear to auscultation. No chest wall tenderness is noted on palpation or with deep breathing. HEART EXAMINATION: Regular rate and rhythm. S1, S2 heard. No murmurs, gallops or rub. ABDOMEN: Soft, nontender. Positive bowel sounds. EXTREMITIES: 2+ peripheral pulses, no lower extremity edema and no calf tenderness. NEUROLOGIC EXAMINATION: Patient is awake, alert and oriented x3. ASSESSMENT 1. Paroxysmal atrial fibrillation, converted to normal sinus rhythm 2. Hypothyroidism PLAN Patient spontaneously converted to normal sinus rhythm. We will discontinue the Cardizem drip. Patient stable for discharge home under home health was and metoprolol. Patient does not have much blood pressure room to increase rate controlling medications. We discussed possible antiarrhythmics or ablation however she has been fairly well controlled and would like to follow-up in office with possible initiation at that time. Past Medical History Past Medical History: Atrial Fibrillation, GERD/Reflux, Hyperlipidemia, Osteoarthritis (OA), Thyroid Disorder Additional Past Medical History / Comment(s): hypothyroid History of Any Multi-Drug Resistant Organisms: None Reported Past Surgical History: Breast Surgery, Section, Tonsillectomy Additional Past Surgical History / Comment(s): left breast biopsy; radiation treatment to throat post tonsillectomy at age 5; c sectionx 2 Past Anesthesia/Blood Transfusion Reactions: No Reported Reaction Past Psychological History: No Psychological Hx Reported Smoking Status: Never smoker Past Alcohol Use History: None Reported Past Drug Use History: None Reported - Past Family History Father Family Medical History: Cancer, Coronary Artery Disease (CAD), Myocardial Infarction ([place]) Additional Family Medical History / Comment(s): lymphoma Mother Family Medical History: Cancer, Coronary Artery Disease (CAD), Diabetes Mellitus, Myocardial Infarction ([place]) Additional Family Medical History / Comment(s): lymphoma Sister(s) Family Medical History: AFIB, Thyroid Disorder Medications and Allergies Home Medications Medication Instructions Recorded Confirmed Type Acetaminophen [Tylenol] 325 - 650 mg PO Q4H PRN 04/09/19 01/26/20 History Alendronate Sodium [Fosamax] 70 mg PO TU 04/09/19 01/26/20 History Apixaban [Eliquis] 5 mg PO BID@0900,2100 04/09/19 01/26/20 History Calcium Carbonate [Calcium] 600 mg PO DAILY 04/09/19 01/26/20 History Fluticasone Nasal [place] [Flonase 1 spray EA NOSTRIL DAILY PRN 04/09/19 01/26/20 History Nasal [place]] Levothyroxine Sodium [Synthroid] 75 mcg PO DAILY 04/09/19 01/26/20 History Multivitamins, Thera [Multivitamin 1 tab PO AC-LUNCH 04/09/19 01/26/20 History (formulary)] Metoprolol Tartrate [Lopressor] 12.5 mg PO BID 07/22/19 01/26/20 History Loratadine [Claritin] 10 mg PO DAILY 08/18/19 01/26/20 History L.acidoph,Paracasei, B.lactis 1 cap PO DAILY 01/26/20 01/26/20 History [Probiotic] Allergies Allergy/AdvReac Type Severity Reaction Status Date / Time diphtheria, pertussis, Allergy Swelling Verified 01/26/20 06:43 tetanus vacc Penicillins Allergy Rash/Hives Verified 01/26/20 06:43 Sulfa (Sulfonamide Allergy Rash/Hives Verified 01/26/20 06:43 Antibiotics) Physical Exam Vitals: Vital Signs Temp Pulse Pulse Resp BP BP Pulse Ox 01/26/20 10:02 94/57 01/26/20 08:39 98.3 F 72 18 90/53 97 01/26/20 05:25 98 F 109 H 16 105/62 99 01/26/20 04:50 97.9 F 116 H 16 113/69 97 01/26/20 04:30 106 H 16 106/74 97 01/26/20 04:00 137 H 16 99/85 96 01/26/20 03:45 141 H 16 109/56 97 01/26/20 03:15 98 16 97/75 98 01/26/20 02:55 122 H 16 96/82 100 01/26/20 02:40 103 H 16 122/69 97 01/26/20 02:30 105 H 16 105/77 99 01/26/20 02:25 93 16 100/64 100 01/26/20 02:15 151 H 16 120/81 98 01/26/20 02:04 147 H 16 100/86 99 01/26/20 01:59 148 H 01/26/20 01:49 98.8 F 86 18 144/91 98 Intake and Output 01/25/20 01/26/20 01/26/20 22:59 06:59 14:59 Other: Voiding Method Toilet # Voids 0 Weight 65.771 kg Results 01/26/20 02:08 01/26/20 02:08 Cardiac Enzymes 01/26/20 01/26/20 01/26/20 Range/Units 02:08 02:08 05:22 AST 28 (14-36) U/L Troponin I <0.012 <0.012 (0.000-0.034) ng/mL 01/26/20 Range/Units 07:34 AST (14-36) U/L Troponin I <0.012 (0.000-0.034) ng/mL Coagulation 01/26/20 Range/Units 02:08 PT 10.5 (9.0-12.0) sec APTT 26.8 (22.0-30.0) sec CBC 01/26/20 Range/Units 02:08 WBC 9.2 (3.8-10.6) k/uL RBC 4.71 (3.80-5.40) m/uL Hgb 13.5 (11.4-16.0) gm/dL Hct 42.6 (34.0-46.0) % Plt Count 155 (150-450) k/uL Comprehensive Metabolic Panel 01/26/20 Range/Units 02:08 Sodium 136 L (137-145) mmol/L Potassium 3.9 (3.5-5.1) mmol/L Chloride 101 (98-107) mmol/L Carbon Dioxide 28 (22-30) mmol/L BUN 12 (7-17) mg/dL Creatinine 0.67 (0.52-1.04) mg/dL Glucose 113 H (74-99) mg/dL Calcium 9.2 (8.4-10.2) mg/dL AST 28 (14-36) U/L ALT 19 (4-34) U/L Alkaline Phosphatase 51 (38-126) U/L Total Protein 7.1 (6.3-8.2) g/dL Albumin 4.2 (3.5-5.0) g/dL Current Medications Generic Name Dose Route Start Last Admin Trade Name Freq PRN Reason Stop Dose Admin Aspirin 325 mg 01/27/20 09:00 Aspirin 325 Mg Tab PO DAILY HODAN Metoprolol Tartrate 50 mg 01/26/20 09:00 01/26/20 10:03 Metoprolol Tartrate 50 Mg Tab PO 50 mg BID HODAN Administration Nitroglycerin 0.4 mg 01/26/20 04:03 Nitroglycerin Sl Tabs 0.4 Mg Tab SUBLINGUAL Q5M PRN Chest Pain Intake and Output 01/25/20 01/26/20 01/26/20 22:59 06:59 14:59 Other: Voiding Method Toilet # Voids 0 Weight 65.771 kg 01/26/20 02:08 01/26/20 02:08
[2020-01-26] MEDS ORDERED: APIXABAN 5 MG TAB PO SCH (10:37)
[2020-01-26] MEDS ORDERED: LACTOBACILLUS ACIDOPH & BULGAR 1 EACH PACKET PO SCH (10:45)
[2020-01-26] MEDS ORDERED: LEVOTHYROXINE 75 MCG TAB PO SCH (10:45)
[2020-01-26] MEDS ORDERED: MULTIVITAMINS, THERA 1 EACH TAB PO SCH (12:30)
--- NOTE | 2020-01-26 20:02 | P.HPIM ---
History of Present Illness H&P Date: 01/26/20 Chief Complaint: Heart racing History of presenting complaint: This is a pleasant 69-year-old patient of Dr. Penn. Known history of paroxysmal atrial fibrillation, GERD, hyperlipidemia, osteoarthritis, hypothyroid. Patient woke up at midnight with a heart beating fast. She hasn't [email or web address] heart was racing. There is no shortness of breath, dizziness lightheadedness or perspiration. No chest pressure. Started to on a Cardizem drip in the ER. Early today converted to sinus rhythm. Patient other drugs or active in good health. Review of systems: GEN.: None EYES: None HEENT: None NECK: None RESPIRATORY: None CARDIOVASCULAR: As above GASTROINTESTINAL: None GENITOURINARY: None MUSCULOSKELETAL: None LYMPHATICS: None HEMATOLOGICAL: None PSYCHIATRY: None NEUROLOGICAL: None Past medical history to include: Paroxysmal atrial fibrillation, GERD, hyperlipidemia osteoarthritis, hypothyroid Social history: . Does not smoke or drink alcohol. Slight increased caffeine intake Physical examination: VITAL SIGNS: 98, 109, 16, 105/62, 99% room air-upon presentation GENERAL: BMI 26.5, sitting up, comfortable. EYES: Pupils equal. Conjunctiva normal. HEENT: External appearance of nose and ears normal, oral cavity grossly normal. NECK: JVD not raised; masses not palpable. HEART: First and second heart sounds are normal; no edema. LUNGS: Respiratory rate normal; clear to auscultation. ABDOMEN: Soft, nontender, liver spleen not palpable, no masses palpable. PSYCH: Alert and oriented x3; mood and affect normal. NEUROLOGICAL: Cranial nerves grossly intact; no facial asymmetry, power and sensation grossly intact. LYMPHATICS: No lymph nodes palpable in the axilla and neck INVESTIGATIONS, reviewed in the clinical context: White count 9.2 hemoglobin 13.5 platelets 155 potassium 3.9 creatinine 0.67 Troponin I less than 0.0123 TSH 7.180 EKG tracing personally reviewed by me-atrial fibrillation with a rate of 148 Assessment -Paroxysmal atrial fibrillation with a rapid ventricular rate, converted earlier today to sinus rhythm -GERD -Hyperlipidemia -Primary osteoarthritis -Hypothyroid. Patient teaches slightly elevated. But clinically patient is not hypothyroid. We will not change the dose. Patient may have a repeat TSH in 2-3 weeks. Plan: Patient was initially put on a Cardizem drip. Dose of beta yulisa was increased. Home medications resumed. Cardiology was consulted. Past Medical History Past Medical History: Atrial Fibrillation, GERD/Reflux, Hyperlipidemia, Osteoarthritis (OA), Thyroid Disorder Additional Past Medical History / Comment(s): hypothyroid History of Any Multi-Drug Resistant Organisms: None Reported Past Surgical History: Breast Surgery, Section, Tonsillectomy Additional Past Surgical History / Comment(s): left breast biopsy; radiation treatment to throat post tonsillectomy at age 5; c sectionx 2 Past Anesthesia/Blood Transfusion Reactions: No Reported Reaction Past Psychological History: No Psychological Hx Reported Smoking Status: Never smoker Past Alcohol Use History: None Reported Past Drug Use History: None Reported - Past Family History Father Family Medical History: Cancer, Coronary Artery Disease (CAD), Myocardial Infarction (MD) Additional Family Medical History / Comment(s): lymphoma Mother Family Medical History: Cancer, Coronary Artery Disease (CAD), Diabetes Mellitus, Myocardial Infarction (MD) Additional Family Medical History / Comment(s): lymphoma Sister(s) Family Medical History: AFIB, Thyroid Disorder Medications and Allergies Home Medications Medication Instructions Recorded Confirmed Type Acetaminophen [Tylenol] 325 - 650 mg PO Q4H PRN 04/09/19 01/26/20 History Alendronate Sodium [Fosamax] 70 mg PO TU 04/09/19 01/26/20 History Apixaban [Eliquis] 5 mg PO BID@0900,2100 04/09/19 01/26/20 History Calcium Carbonate [Calcium] 600 mg PO DAILY 04/09/19 01/26/20 History Fluticasone Nasal [place] [Flonase 1 spray EA NOSTRIL DAILY PRN 04/09/19 01/26/20 History Nasal [place]] Levothyroxine Sodium [Synthroid] 75 mcg PO DAILY 04/09/19 01/26/20 History Multivitamins, Thera [Multivitamin 1 tab PO AC-LUNCH 04/09/19 01/26/20 History (formulary)] L.acidoph,Paracasei, B.lactis 1 cap PO DAILY 01/26/20 01/26/20 History [Probiotic] Metoprolol Tartrate [Lopressor] 25 mg PO BID #0 01/26/20 01/26/20 Rx Allergies Allergy/AdvReac Type Severity Reaction Status Date / Time diphtheria, pertussis, Allergy Swelling Verified 01/26/20 06:43 tetanus vacc Penicillins Allergy Rash/Hives Verified 01/26/20 06:43 Sulfa (Sulfonamide Allergy Rash/Hives Verified 01/26/20 06:43 Antibiotics) Physical Exam Vitals: Vital Signs Temp Pulse Pulse Resp BP BP Pulse Ox 01/26/20 10:02 94/57 01/26/20 08:39 98.3 F 72 18 90/53 97 01/26/20 05:25 98 F 109 H 16 105/62 99 01/26/20 04:50 97.9 F 116 H 16 113/69 97 01/26/20 04:30 106 H 16 106/74 97 01/26/20 04:00 137 H 16 99/85 96 01/26/20 03:45 141 H 16 109/56 97 01/26/20 03:15 98 16 97/75 98 01/26/20 02:55 122 H 16 96/82 100 01/26/20 02:40 103 H 16 122/69 97 01/26/20 02:30 105 H 16 105/77 99 01/26/20 02:25 93 16 100/64 100 01/26/20 02:15 151 H 16 120/81 98 01/26/20 02:04 147 H 16 100/86 99 01/26/20 01:59 148 H 01/26/20 01:49 98.8 F 86 18 144/91 98 Intake and Output 01/25/20 01/26/20 01/26/20 22:59 06:59 14:59 Other: Voiding Method Toilet # Voids 0 Weight 65.771 kg Results CBC & Chem 7: 01/26/20 02:08 01/26/20 02:08 Labs: Abnormal Lab Results - Last 24 Hours (Table) 01/26/20 Range/Units 02:08 Sodium 136 L (137-145) mmol/L Glucose 113 H (74-99) mg/dL Thrombosis Risk Factor Assmnt - Choose All That Apply Any of the Below Risk Factors Present?: Yes Each Factor Represents 1 point: Obesity (BMI >25) Each Risk Factor Represents 2 Points: Age 61-74 years Thrombosis Risk Factor Assessment Total Risk Factor Score: 3 Thrombosis Risk Factor Assessment Level: Moderate Risk
--- NOTE | 2020-01-26 20:04 | P.DS ---
Providers Date of admission: 01/26/20 04:04 Expected date of discharge: 01/26/20 Attending physician: Ilya Stockton Consults: 01/26/20 04:03 Consult Physician Urgent Consulting Provider: Mercy Ruiz Consult Reason/Comments: [email or web address] Do you want consulting provider notified?: Yes Primary care physician: [facility] Course: Chief Complaint: Heart racing History of presenting complaint: This is a pleasant 69-year-old patient of Dr. Penn. Known history of paroxysmal atrial fibrillation, GERD, hyperlipidemia, osteoarthritis, hypothyroid. Patient woke up at midnight with a heart beating fast. She hasn't [email or web address] heart was racing. There is no shortness of breath, dizziness lightheadedness or perspiration. No chest pressure. Started to on a Cardizem drip in the ER. Early today converted to sinus rhythm. Patient other drugs or active in good health. Dose of beta yulisa was increased. Otherwise patient doing well. Consultation: Dr. Lee from cardiology Physical examination: VITAL SIGNS: 98.3, 72, 18, 94/57, 97% room air GENERAL:, sitting up, comfortable. EYES: Pupils equal. Conjunctiva normal. NECK: JVD not raised; masses not palpable. HEART: First and second heart sounds are normal; no edema. LUNGS: Respiratory rate normal; clear to auscultation. ABDOMEN: Soft, nontender, liver spleen not palpable, no masses palpable. PSYCH: Alert and oriented x3; mood and affect normal. INVESTIGATIONS, reviewed in the clinical context: White count 9.2 hemoglobin 13.5 platelets 155 potassium 3.9 creatinine 0.67 Troponin I less than 0.0123 TSH 7.180 EKG tracing personally reviewed by me-atrial fibrillation with a rate of 148 Assessment -Paroxysmal atrial fibrillation with a rapid ventricular rate, converted earlier today to sinus rhythm -GERD -Hyperlipidemia -Primary osteoarthritis -Hypothyroid. TSH slightly elevated. But clinically patient is not hypothyroid. We will not change the dose. Patient may have a repeat TSH in 2-3 weeks. Disposition: Home Patient Condition at Discharge: Stable Plan - Discharge Summary Discharge Rx Participant: No New Discharge Prescriptions: Continue Fluticasone Nasal [place] [Flonase Nasal [place]] 1 spray EA NOSTRIL DAILY PRN PRN Reason: Allergy Symptoms Acetaminophen [Tylenol] 325 - 650 mg PO Q4H PRN PRN Reason: Pain Multivitamins, Thera [Multivitamin (formulary)] 1 tab PO AC-LUNCH Calcium Carbonate [Calcium] 600 mg PO DAILY Alendronate Sodium [Fosamax] 70 mg PO TU Apixaban [Eliquis] 5 mg PO BID@0900,2100 Levothyroxine Sodium [Synthroid] 75 mcg PO DAILY L.acidoph,Paracasei, B.lactis [Probiotic] 1 cap PO DAILY Changed Metoprolol Tartrate [Lopressor] 25 mg PO BID #0 Discontinued Loratadine [Claritin] 10 mg PO DAILY Discharge Medication List Acetaminophen [Tylenol] 325 - 650 mg PO Q4H PRN 04/09/19 [History] Alendronate Sodium [Fosamax] 70 mg PO TU 04/09/19 [History] Apixaban [Eliquis] 5 mg PO BID@0900,2100 04/09/19 [History] Calcium Carbonate [Calcium] 600 mg PO DAILY 04/09/19 [History] Fluticasone Nasal [place] [Flonase Nasal [place]] 1 spray EA NOSTRIL DAILY PRN 04/09/19 [History] Levothyroxine Sodium [Synthroid] 75 mcg PO DAILY 04/09/19 [History] Multivitamins, Thera [Multivitamin (formulary)] 1 tab PO AC-LUNCH 04/09/19 [History] L.acidoph,Paracasei, B.lactis [Probiotic] 1 cap PO DAILY 01/26/20 [History] Metoprolol Tartrate [Lopressor] 25 mg PO BID #0 01/26/20 [Rx] Follow up Appointment(s)/Referral(s): Biju Penn MD [Primary Care Provider] - 01/30/20 11:30 am (to be seen at [facility] by [facility] -[phone]) Faheem Fontenot MD [STAFF PHYSICIAN] - 02/02/20 10:45 am Patient Instructions/Handouts: A-fib (Atrial Fibrillation) (GEN) Discharge Disposition: HOME SELF-CARE
[2020-01-27] MEDS ORDERED: CALCIUM CARBONATE 500 MG CHEWABLE PO SCH (09:00)
[2020-01-27] MEDS ORDERED: ASPIRIN 325 MG TAB PO SCH (09:00)
== END 2020-01-26 13:47 | disposition home or self-care (01) ==
LOC: EC 01:46 → 1SOBS 04:04
PROVIDERS: ADMIT Hospitalist; ATTEND Hospitalist
DX: I48.0 Paroxysmal atrial fibrillation (principal); K21.9 Gastro-esophageal reflux disease without esophagitis; E78.5 Hyperlipidemia, unspecified; M19.91 Primary osteoarthritis, unspecified site; E03.9 Hypothyroidism, unspecified; E66.9 Obesity, unspecified; Z68.26 Body mass index [BMI] 26.0-26.9, adult; I47.1 Supraventricular tachycardia; Z79.01 Long term (current) use of anticoagulants; Z79.890 Hormone replacement therapy; Z79.899 Other long term (current) drug therapy; Z79.83 Long term (current) use of bisphosphonates; Z88.0 Allergy status to penicillin; Z88.2 Allergy status to sulfonamides; Z88.7 Allergy status to serum and vaccine; Z92.3 Personal history of irradiation; Z82.49 Family history of ischemic heart disease and other diseases of the circulatory system; Z80.7 Family history of other malignant neoplasms of lymphoid, hematopoietic and related tissues; Z83.3 Family history of diabetes mellitus; Z83.49 Family history of other endocrine, nutritional and metabolic diseases
CPT/HCPCS: 96376; 96361; 96365; 99285; 36415; 93005; 83880; 80053; 82550; 83735; 84100; 84443; 84484; 85025; 85610; 85730; G0378

== ENCOUNTER → 2020-07-26 | Outpatient (CLI) | payer MEDICARE ==
[2020-07-26 14:42] VITALS: BP 129/77; PULSE 69; RESP 18; TEMP 98
--- NOTE | 2020-07-26 15:13 | P.PN ---
Subjective Progress Note Date: 07/26/20 Principal diagnosis: Surveillance fibrocystic breast changes Cata is a 70 year-old white female who underwent a bilateral mammogram on . This was in follow-up for a bi-lateral mammogram approximately 6 months prior with some calcifications noted. On that mammogram she was noted to have some coarse single Microcalcification central upper breast bilaterally. There was chronic nodularity in the left axilla. The area in the right breast was felt to be suspicious enough to warrant intervention of stereotactic core biopsy. She underwent a stero biopsy on 08-11-19 of the right bresat. This was benign. She had a bilateral mammogram done at [facility] on 6120. This was benign BIRADS 2. She does not feel any masses or lumps in her breast. No complaints of nipple discharge. No complaints of breast pain. No trauma or infection in her breast. The left breast biopsy at 36 was done which was not cancer. Caffeine: 4 cups/day smoking: none, daughter lives with her and smokes outside chocolate: occasional Family History: mother: lung cancer, lymphoma father: lymphoma Hormonal History: menarche: 13 , breast fed: yes, age at first : 27 menopause: 50 BCP: 6 years hormones: none Surgical History: 1. left breast biopsy 2. 2 C-sections 3. D&C 4. dental surgery 5. stero biopsy of the right breast Medical History: 1. atrial fibrillation 2. hypothyroid Social History: smoke: 2nd hand smoke alcohol: none drugs: none - Constitutional Comment: hot flashes Constitutional: Denies chills, Denies fever - EENT Eyes: denies blurred vision, denies pain Ears: deny: decreased hearing, tinnitus Ears, nose, mouth and throat: Denies headache, Denies sore throat - Breasts Breasts: bilateral: as per HPI - Cardiovascular Comment: atrial fibrillation - Respiratory Respiratory: Denies cough - Gastrointestinal Gastrointestinal: Denies abdominal pain, Denies diarrhea, Denies nausea, Denies vomiting - Genitourinary (Female) Genitourinary: Denies dysuria, Denies hematuria - Menstruation Menstruation: Reports postmenopausal - Musculoskeletal Comment: arthritis - Integumentary Integumentary: Denies pruritus, Denies rash - Neurological Neurological: Denies numbness, Denies weakness - Psychiatric Psychiatric: Denies anxiety, Denies depression - Endocrine Endocrine: Denies fatigue, Denies weight change - Hematologic/Lymphatic Comment: eloquis - Allergic/Immunologic Allergic/Immunologic: Reports as per HPI Objective - Vital Signs Vital signs: Vital Signs Temp 98.0 F 07/26/20 14:37 Pulse 69 07/26/20 14:37 Resp 18 07/26/20 14:37 BP 129/77 07/26/20 14:37 Pulse Ox 97 07/26/20 14:37 Intake & Output 07/25/20 07/26/20 07/26/20 18:59 06:59 18:59 Weight 68.039 kg - Exam BMI 27.4 - Constitutional General appearance: Present: average body habitus, cooperative - EENT Eyes: Present: EOMI ENT: Present: hearing grossly normal - Neck Neck: Present: normal ROM - Respiratory Respiratory: bilateral: CTA - Cardiovascular Rhythm: regular Heart sounds: normal: S1, S2 - Gastrointestinal General gastrointestinal: Present: soft - Integumentary Integumentary: Present: normal turgor - Musculoskeletal Musculoskeletal: Present: gait normal - Psychiatric Psychiatric: Present: A&O x's 3, appropriate affect, intact judgment & insight - Additional findings Additional findings: Breast Exam: BRA: 38C inspection: Bilateral grade 2 ptosis Palpation: Right breast: Multiple positional exam fibrocystic changes no dominant masses or nodules of concern Right axilla: No adenopathy of concern Left breast: Multi-positional exam fibrocystic changes no dominant masses or nodules of concern Left axilla: No adenopathy of concern Assessment and Plan Assessment: Impression: 1. Bilateral fibrocystic breast changes 2. Recent bilateral mammogram from 6121 benign BIRADS 2 3. Atrial fibrillation 4. Hypothyroid Plan: 1. Repeat bilateral mammogram in 1 year with physician exam at that time Cc: Dr. DR. Penn; Bessie Ramsay
== END ==
LOC: WWCWWP 14:32
PROVIDERS: ATTEND Surgery
DX: N60.11 Diffuse cystic mastopathy of right breast (principal); N60.12 Diffuse cystic mastopathy of left breast; E03.9 Hypothyroidism, unspecified; I48.91 Unspecified atrial fibrillation; Z88.0 Allergy status to penicillin; Z88.7 Allergy status to serum and vaccine